=== PATIENT | female | born 1950 | race Caucasian/White ===

== ENCOUNTER 2021-01-12 21:12 | Observation (INO) | payer OTHER ==
--- NOTE | 2021-01-12 22:22 | RAD REPORT ---
EXAM DESCRIPTION: RAD - Chest Single View - 01/12/2021 10:01 pm CLINICAL HISTORY: CHEST PAIN Chest pain. COMPARISON: <Comparisons> FINDINGS: Portable technique limits examination quality. The lungs are grossly clear. The heart is normal in size. No displaced fractures.Dual lead pacer cas ce noted. IMPRESSION: No acute intrathoracic process suspected.
[2021-01-12 22:34] LABS: Basophils % 0.7 % (0-1.3); Hematocrit 33.8 % (36.0-45.0); Lymphocytes % 24.5 % (15.3-44.8); MPV 8.1 fL (7.6-11.3); RBC Red Blood Cell Count 3.37 M/uL (3.86-4.86)
[2021-01-12 22:51] LABS: ALT/SGPT 40 U/L (12-78); AST/SGOT 17 U/L (15-37); Alkaline Phosphatase 82 U/L (45-117); BUN Blood Urea Nitrogen 17 mg/dL (7-18); Bicarbonate 25 mmol/L (21-32); Bilirubin Direct 0.4 mg/dL (0-0.2); Bilirubin Total 2.5 mg/dL (0.2-1.0); Glucose Level 117 mg/dL (74-106); Magnesium 2.3 mg/dL (1.8-2.4); NT PRO-BNP 63 pg/mL (<125); Potassium 3.6 mmol/L (3.5-5.1); Protein, Total 7.1 g/dL (6.4-8.2); Sodium Level 144 mmol/L (136-145); Troponin (Emerg Dept Use Only) < 0.02 ng/mL (0.0-0.045)
[2021-01-12 22:54] LABS: Protime INR 2.24
--- NOTE | 2021-01-13 00:31 | EDPHYS ---
Physician Documentation [facility] Name: Jennifer Garcia Age: 71 yrs Sex: Female : 1950 Arrival Date: 01/12/2021 Time: 21:14 Bed 19 Private MD: ED Physician Pierre Gant HPI: 01/13 05:53 This 71 yrs old Female presents to ER via Wheelchair with complaints of tw4 Collapse Lungs. 05:53 The patient or guardian reports chest pain that is located primarily in the anterior tw4 chest wall. Onset: today. The pain does not radiate. Associated signs and symptoms: The patient has no apparent associated signs or symptoms. The chest pain is described as sharp. Duration: The patient or guardian reports multiple episodes, that are intermittent, that wax and wane. Modifying factors: The symptoms are alleviated by narcotic pain medication, the symptoms are aggravated by nothing. The patient has not experienced similar symptoms in the past. Historical: - Allergies: 01/12 21:35 Erythromycin; ll1 21:35 Codeine; ll1 - Home Meds: 01/13 04:58 cevimeline 30 mg oral cap 1 cap 2 time per day for Xerostomia Secondary to Sjogren's sf Syndrome [Active]; 05:13 losartan 50 mg oral tab 1 tab 2 times per day [Active]; amlodipine 5 mg tab 1 tab once sf daily [Active]; flecainide 100 mg oral tab 1 tab every 12 hours [Active]; Xarelto 20 mg oral tab 1 tab once daily [Active]; Crestor 20 mg oral tab 1 tab once daily [Active]; Singulair 10 mg Oral tab 1 tab once daily [Active]; - PMHx: 01/12 21:35 Hypertension; High Cholesterol; ll1 01/13 04:59 Sjogren's; sf - PSHx: 01/12 21:35 pacemaker; ll1 - Immunization history:: Flu vaccine is up to date. - Social history:: Smoking status: Patient denies any tobacco usage or history of. ROS: 01/13 05:53 Constitutional: Negative for fever, chills, and weight loss, Eyes: Negative for injury, tw4 pain, redness, and discharge, Neck: Negative for injury, pain, and swelling, Respiratory: Negative for shortness of breath, cough, wheezing, and pleuritic chest pain, Abdomen/GI: Negative for abdominal pain, nausea, vomiting, diarrhea, and constipation, Back: Negative for injury and pain, MS/Extremity: Negative for injury and deformity, Skin: Negative for injury, rash, and discoloration, Neuro: Negative for headache, weakness, numbness, tingling, and seizure. Cardiovascular: Positive for chest pain. Exam: 05:53 Constitutional: This is a well developed, well nourished patient who is awake, alert, tw4 and in no acute distress. Head/Face: Normocephalic, atraumatic. Chest/axilla: Normal chest wall appearance and motion. Nontender with no deformity. No lesions are appreciated. Cardiovascular: Regular rate and rhythm with a normal S1 and S2. No gallops, murmurs, or rubs. Normal PMI, no JVD. No pulse deficits. Respiratory: Lungs have equal breath sounds bilaterally, clear to auscultation and percussion. No rales, rhonchi or wheezes noted. No increased work of breathing, no retractions or nasal flaring. Abdomen/GI: Soft, non-tender, with normal bowel sounds. No distension or tympany. No guarding or rebound. No evidence of tenderness throughout. Back: No spinal tenderness. No costovertebral tenderness. Full range of motion. Skin: Warm, dry with normal turgor. Normal color with no rashes, no lesions, and no evidence of cellulitis. MS/ Extremity: Pulses equal, no cyanosis. Neurovascular intact. Full, normal range of motion. Neuro: Awake and alert, GCS 15, oriented to person, place, time, and situation. Cranial nerves II-XII grossly intact. Motor strength 5/5 in all extremities. Sensory grossly intact. Cerebellar exam normal. Normal gait. Vital Signs: 01/12 21:31 BP 163 / 84; Pulse 76; Resp 18; Temp 99.2; Pulse Ox 99% ; Weight 95.71 kg; Height 5 ft. ll1 5 in. (165.10 cm); Pain 8/10; 22:07 BP 147 / 75; Pulse 72; Resp 18; Pulse Ox 97% ; sf 22:30 BP 151 / 73; Pulse 67; Resp 16; Pulse Ox 95% ; sf 01/13 00:30 BP 154 / 79; Pulse 68; Resp 16; Pulse Ox 96% ; sf 03:15 BP 143 / 78; Pulse 79; Resp 16; Pulse Ox 95% ; sf 04:00 BP 143 / 84; Pulse 74; Resp 16; Pulse Ox 95% ; sf 01/12 21:31 Body Mass Index 35.11 (95.71 kg, 165.10 cm) ll1 MDM: 01/12 21:50 Patient medically screened. tw4 01/13 05:54 Differential diagnosis: mitral valve prolapse, pancreatitis, peptic ulcer disease, tw4 pericarditis, pulmonary embolus, thoracic aortic disection. Data reviewed: vital signs, nurses notes. Counseling: I had a detailed discussion with the patient and/or guardian regarding: the historical points, exam findings, and any diagnostic results supporting the discharge/admit diagnosis. 01/12 21:50 Order name: Basic Metabolic Panel tw 01/12 21:50 Order name: CBC with Diff [facility] 01/12 21:50 Order name: LFT's [facility] 01/12 21:50 Order name: Magnesium tw 01/12 21:50 Order name: NT PRO-BNP tw 01/12 21:50 Order name: PT-INR; Complete Time: 01:48 [facility] 01/12 21:50 Order name: Troponin (emerg Dept Use Only); Complete Time: 22:57 [facility] 01/12 22:59 Interpretation: Within normal limits: TROPED < 0.02. tw4 01/12 21:51 Order name: Basic Metabolic Panel; Complete Time: 22:57 [facility] 01/12 22:57 Interpretation: Normal except: CL 110; GLUC 117; GFR 57. tw4 01/12 21:51 Order name: CBC with Automated Diff; Complete Time: 22:57 [facility]TX 01/12 22:58 Interpretation: Normal except: RBC 3.37; HGB 11.7; HCT 33.8; MCV 100.2; PLT 442; RDW tw4 16.4. 01/12 21:51 Order name: Liver (Hepatic) Function; Complete Time: 22:57 EDMS 01/12 22:58 Interpretation: BILID 0.4; BILIT 2.5. tw4 01/12 21:51 Order name: Magnesium; Complete Time: 22:57 [facility]TX 01/12 22:59 Interpretation: Within normal limits: MG 2.3. tw4 01/12 21:51 Order name: NT PRO-BNP; Complete Time: 22:57 EDMS 01/12 22:59 Interpretation: Within normal limits: NT PRO-BNP 63. 01/13 00:31 Order name: COVID-19 : Document "Date of Symptom Onset" if Symptomatic. mw2 01/13 04:12 Order name: SARS-COV-2 RT PCR [facility]TX 01/12 21:50 Order name: XRAY Chest (1 view); Complete Time: 22:32 tw4 01/12 21:50 Order name: EKG; Complete Time: 21:51 tw4 01/12 21:50 Order name: Cardiac monitoring; Complete Time: 22:02 tw4 01/12 21:50 Order name: EKG - Nurse/Tech; Complete Time: 22:02 tw 01/12 21:50 Order name: IV Saline Lock; Complete Time: 22:14 tw4 01/12 21:50 Order name: Labs collected and sent; Complete Time: 22:14 [facility] 01/12 21:50 Order name: O2 Per Protocol; Complete Time: 22:02 tw 01/12 21:50 Order name: O2 Sat Monitoring; Complete Time: 22:02 4 01/12 23:00 Order name: CT Chest For PE Angio tw4 EC:54 Rate is 75 beats/min. Rhythm is regular. Left axis deviation noted. NJ interval is tw4 normal. QRS interval is normal. QT interval is normal. No Q waves. T waves are Normal. No ST changes noted. Clinical impression: NSR w/ Non-specific ST/T Changes. Interpreted by me. Reviewed by me. Administered Medications: No medications were administered Disposition: 01/13/21 00:31 Hospitalization ordered by David Littlejohn for Observation. Preliminary diagnosis is Other chest pain. - Bed requested for Telemetry/MedSurg (observation). - Status is Observation. sf - Condition is Stable. - Problem is new. - Symptoms have improved. Signatures: Dispatcher [employer] EDMS Kelton Alonso, DARBY-C POWDER COAT PAINTER-Cla1 Mervin Barajas PA PA cp Garcia, Cindy, RN RN Pierre Gant MD MD tw4 Diana Ricci RN RN ll1 Blayne Herbert RN RN sf Corrections: (The following items were deleted from the chart) 04:58 00:31 Hospitalization Ordered by David Littlejohn DO for Observation. Preliminary cg diagnosis is Other chest pain. Bed requested for Telemetry/MedSurg (observation). Status is Observation. Condition is Stable. Problem is new. Symptoms have improved. tw4 05:32 04:58 01/13/2021 00:31 Hospitalization Ordered by David Littlejohn DO for Observation. sf Preliminary diagnosis is Other chest pain. Bed requested for Telemetry/MedSurg (observation). Status is Observation. Condition is Stable. Problem is new. Symptoms have improved. cg
--- NOTE | 2021-01-13 00:31 | ER ---
Nurse's Notes [facility] Name: Jennifer Garcia Age: 71 yrs Sex: Female : 1950 Arrival Date: 01/12/2021 Time: 21:14 Bed 19 Private MD: Diagnosis: Other chest pain Presentation: 01/12 21:31 Chief complaint: Patient states: Mid CP and SOB since 1700 today. Nausea and dizzy at ll1 times. States she had a pacemaker placed 12/26. Collapsed lung R after surgery. Had chest tube. States it feels like another collapsed lung. Coronavirus screen: Client denies travel out of the [place] in the last 14 days. At this time, the client does not indicate any symptoms associated with coronavirus-19. Ebola Screen: Patient denies travel to an Ebola-affected area in the 21 days before illness onset. Initial Sepsis Screen: Does the patient meet any 2 criteria? No. Patient's initial sepsis screen is negative. Does the patient have a suspected source of infection? Yes: Other: CP. Risk Assessment: Do you want to hurt yourself or someone else? Patient reports no desire to harm self or others. Onset of symptoms was January 12, 2021. 21:31 Method Of Arrival: Wheelchair ll1 21:31 Acuity: KIERAN 2 ll1 Historical: - Allergies: 21:35 Erythromycin; ll1 21:35 Codeine; ll1 - Home Meds: 01/13 04:58 cevimeline 30 mg oral cap 1 cap 2 time per day for Xerostomia Secondary to Sjogren's sf Syndrome [Active]; 05:13 losartan 50 mg oral tab 1 tab 2 times per day [Active]; amlodipine 5 mg tab 1 tab once sf daily [Active]; flecainide 100 mg oral tab 1 tab every 12 hours [Active]; Xarelto 20 mg oral tab 1 tab once daily [Active]; Crestor 20 mg oral tab 1 tab once daily [Active]; Singulair 10 mg Oral tab 1 tab once daily [Active]; - PMHx: 01/12 21:35 Hypertension; High Cholesterol; ll1 01/13 04:59 Sjogren's; sf - PSHx: 01/12 21:35 pacemaker; ll1 - Immunization history:: Flu vaccine is up to date. - Social history:: Smoking status: Patient denies any tobacco usage or history of. Screenin:40 Abuse screen: Denies threats or abuse. Denies injuries from another. Nutritional sf screening: No deficits noted. Tuberculosis screening: No symptoms or risk factors identified. Never had TB. Possible symptoms: None Risk factors: None. Fall Risk None identified. No fall in past 12 months (0 pts). No secondary diagnosis (0 pts). IV access (20 points). Ambulatory Aid- None/Bed Rest/Nurse Assist (0 pts). Gait- Normal/Bed Rest/Wheelchair (0 pts) Mental Status- Oriented to own ability (0 pts). Total Rai Fall Scale indicates No Risk (0-24 pts). Assessment: 22:40 General: Appears in no apparent distress. comfortable, Behavior is calm, cooperative, sf appropriate for age. Pain: Complains of pain in anterior aspect of right upper chest. Neuro: No deficits noted. Level of Consciousness is awake, alert, obeys commands, Oriented to person, place, time, situation, Appropriate for age. Cardiovascular: Reports Right chest wall pain Patient's skin is warm and dry. Rhythm is atrial fibrillation. Respiratory: Reports shortness of breath Airway is patent Respiratory effort is even, unlabored, Respiratory pattern is regular, symmetrical. 01/13 00:46 Reassessment: Patient appears in no apparent distress at this time. No changes from sf previously documented assessment. Patient and/or family updated on plan of care and expected duration. Pain level reassessed. Patient is alert, oriented x 3, equal unlabored respirations, skin warm/dry/pink. 01:20 Reassessment: Called [employer] for pace-maker interrogation per request of ZOË Melara. sf Vital Signs: 01/12 21:31 BP 163 / 84; Pulse 76; Resp 18; Temp 99.2; Pulse Ox 99% ; Weight 95.71 kg; Height 5 ft. ll1 5 in. (165.10 cm); Pain 8/10; 22:07 BP 147 / 75; Pulse 72; Resp 18; Pulse Ox 97% ; sf 22:30 BP 151 / 73; Pulse 67; Resp 16; Pulse Ox 95% ; sf 01/13 00:30 BP 154 / 79; Pulse 68; Resp 16; Pulse Ox 96% ; sf 03:15 BP 143 / 78; Pulse 79; Resp 16; Pulse Ox 95% ; sf 04:00 BP 143 / 84; Pulse 74; Resp 16; Pulse Ox 95% ; sf 01/12 21:31 Body Mass Index 35.11 (95.71 kg, 165.10 cm) ll1 ED Course: 01/12 21:14 Patient arrived in ED. cl3 21:34 Triage completed. ll1 21:35 Arm band placed on. ll1 21:42 Blayne Herbert, RN is Primary Nurse. sf 21:50 Pierre Gant MD is Attending Physician. tw4 22:01 XRAY Chest (1 view) In Process Unspecified. EDMS 22:40 Patient has correct armband on for positive identification. Placed in gown. Bed in low sf position. Call light in reach. Side rails up X2. No stick/BP left arm. threat monitoring analyst on. Pulse ox on. NIBP on. Door closed. Visitors limited. Lights dimmed. Warm blanket given. Verbal reassurance given. 22:40 Inserted saline lock: 20 gauge in right antecubital area, using aseptic technique. sf 23:58 CT Chest For PE Angio In Process Unspecified. EDTX 01/13 00:30 David Littlejohn DO is Hospitalizing Provider. tw4 03:22 Basic Metabolic Panel Sent. sf 03:22 CBC with Diff Sent. sf 03:22 LFT's Sent. sf 03:22 Magnesium Sent. sf 03:22 NT PRO-BNP Sent. sf 03:52 No provider procedures requiring assistance completed. Patient admitted, IV remains in sf place. 04:14 Ambulated to restroom and back. sf Administered Medications: No medications were administered Outcome: 00:31 Decision to Hospitalize by Provider. tw4 05:21 Admitted to Tele accompanied by tech, via wheelchair, room 428, Report called to karthikeyan Elmore RN 05:22 Condition: stable sf 05:32 Patient left the ED. Signatures: Dispatcher [employer] EDTX Pierre Gant MD MD tw4 Ellis Ricci cl3 Diana Ricci RN RN ll1 Blayne Herbert, CHRIS RN
--- NOTE | 2021-01-13 02:05 | P.HP ---
Certification for Inpatient Patient admitted to: Observation With expected LOS: <2 Midnights Patient will require the following post-hospital care: None Practitioner: I am a practitioner with admitting privileges, knowledge of patient current condition, hospital course, and medical plan of care. Services: Services provided to patient in accordance with Admission requirements found in Title 42 Section 412.3 of the Code of Federal Regulations Patient History Date of Service: 01/13/21 Reason for admission: Chest pain History of Present Illness: 71-year-old female with history of breast cancer, hypertension, hyperlipidemia, sick sinus syndrome with pacemaker placement recent history of pneumothorax/pulmonary embolism presents emergency department for chest pain. Patient was at [facility] starting on December first for approximately 10 days to have pacemaker inserted due to sick sinus syndrome. Patient had pneumothorax as complication from pacemaker insertion and then had pulmonary embolism following this. Patient reports that today she was at home around 4:00 p.m. started having a sharp pain radiating to her right shoulder and back with associated palpitations, dizziness, shortness of breath. Patient felt like she had a pneumothorax again so came into the emergency department. Patient was evaluated in the ER, chest x-ray unremarkable CT PE protocol negative for pneumothorax or pulmonary embolism. Patient currently taking Xarelto for PE treatment. Patient had stress test in September that was negative has never had a heart catheterization. ED provider wishes to admit patient for chest pain rule out. When I saw the patient in the ER she was awake, alert, oriented x3, patient chest pain free at this time, was able to obtain [employer] pacemaker card, as patient said that she is having palpitations during this episode of chest pain attempts are being made to interrogate pacemaker. Patient was offered transfer to [facility] as she is having chest pain and recently had all of these procedures done but declined stating she did not want go back there as they had caused multiple complications for her. - Past Medical/Surgical History -: Hypertension -: Hyperlipidemia -: Sick sinus syndrome status post pacemaker insertion -: History of pulmonary embolism December 2020 -: Pneumothorax 2020 -: History of breast cancer with bilateral mastectomy -: Bilateral Mastectomy -: Bilateral oophorectomy -: Left ankle surgery Psychosocial/ Personal History: Patient is retired, lives with her - Family History Mother -: Heart disease - Social History Smoking Status: Never smoker Alcohol use: No CD- Drugs: No Caffeine use: Yes Place of Residence: Home Review of Systems 10-point ROS is otherwise unremarkable Cardiovascular: Chest Pain, Palpitations, Light Headedness, As per HPI Physical Examination - Physical Exam General: Alert, In no apparent distress HEENT: Atraumatic, PERRLA, Mucous membr. moist/pink, EOMI, Sclerae nonicteric Neck: Supple, 2+ carotid pulse no bruit, No LAD, Without JVD or thyroid abnormality Respiratory: Clear to auscultation bilaterally, Normal air movement Cardiovascular: Regular rate/rhythm, Normal S1 S2 Gastrointestinal: Normal bowel sounds, No tenderness Musculoskeletal: No tenderness Integumentary: No rashes Neurological: Normal speech, Normal strength at 5/5 x4 extr, Normal tone, Normal affect - Studies Laboratory Data (last 24 hrs) 01/12/21 22:05: PT 26.0 H, INR 2.24 01/12/21 22:05: WBC 8.40, Hgb 11.7 L, Hct 33.8 L, Plt Count 442 H 01/12/21 22:05: Sodium 144, Potassium 3.6, BUN 17, Creatinine 0.96, Glucose 117 H, Magnesium 2.3, Total Bilirubin 2.5 H, AST 17, ALT 40, Alkaline Phosphatase 82 Assessment and Plan - Plan Assessment Chest pain rule out ACS: Recent history of pulmonary embolism on anticoagulation therapy: Sick sinus syndrome status post pacemaker insertion: Hypertension: Hyperlipidemia: Plan Chest pain rule out ACS: Monitor on telemetry, trend troponins. Stress test in September 2020 normal, no history of heart catheterization. Patient reports palpitations during episode of chest pain, pacemaker present, will have nursing staff to get in touch with [employer] to interrogate pacemaker. Cardiology consult in place. Continue home medications. Recent history of pulmonary embolism on anticoagulation therapy: Continue Xarelto, CT PE protocol, negative. Sick sinus syndrome status post pacemaker insertion: Monitor on telemetry, cardiology consult in place. Interrogate pacemaker. Hypertension: Home medications continue Hyperlipidemia: Obtain and continue home meds Discharge Plan: Home Plan to discharge in: 24 Hours - Advance Directives Does patient have a Living Will: No Does patient have a Durable POA for Healthcare: No - Code Status/Comfort Care Code Status Assessed: Yes (Full code) Critical Care: No Time Spent Managing Pts Care (In Minutes): 55
[2021-01-13] MEDS ORDERED: ONDANSETRON 4 MG/2 ML VIAL IV PRN (06:15)
[2021-01-13] MEDS ORDERED: ACETAMINOPHEN 500 MG TAB PO PRN (06:15)
[2021-01-13] MEDS ORDERED: HYDROCODONE/APAP 10/325 TAB PO PRN (06:15)
[2021-01-13 06:51] LABS: Absolute Lymphocytes (CBC) 1.3 K/uL (0.7-4.9); Hematocrit 33.1 % (36.0-45.0); Lymphocytes % 14.9 % (15.3-44.8); MPV 8.2 fL (7.6-11.3); RBC Red Blood Cell Count 3.29 M/uL (3.86-4.86)
[2021-01-13 07:19] LABS: BUN Blood Urea Nitrogen 13 mg/dL (7-18); Bicarbonate 26 mmol/L (21-32); Glucose Level 106 mg/dL (74-106); HDL Cholesterol 45 mg/dL (40-60); LDL Cholesterol, Calculated 36 (<130); Magnesium 2.3 mg/dL (1.8-2.4); Potassium 3.6 mmol/L (3.5-5.1); Sodium Level 144 mmol/L (136-145); Troponin I < 0.02 ng/mL (0.0-0.045)
--- NOTE | 2021-01-13 07:41 | P.DS ---
Admission Date: 01/13/21 Discharge Date: 01/13/21 Primary Care Provider: PRIMITIVO Trejo Disposition: ROUTINE DISCHARGE Discharge Condition: GOOD Reason for Admission: Chest pain Consultations: Cardiology-Dr. Townsend Procedures: COVID: Negative CT scan: FINDINGS: Chest: Pulmonary arteries: Contrast bolus is adequate. No filling defects identified in the main, right, left, or lobar pulmonary arteries. Evaluation of the segmental and subsegmental pulmonary arterial branches is suboptimal due to respiratory motion artifact. Thyroid: Heterogeneous hypodense right thyroid nodule measuring 2.8 cm. Great Vessels: Great vessels have normal anatomic configuration. Thoracic Aorta: Atherosclerotic calcification of the thoracic aorta. Heart: Cardiomegaly. Coronary artery atherosclerosis. Right chest wall multilead generator. Lymph Nodes: No enlarged mediastinal lymph nodes identified. Esophagus: Small hiatal hernia. Other: Postoperative change in the left axilla. Lungs: Respiratory motion artifact. Minimal bibasilar atelectasis. No confluent airspace consolidation. Pleura: No pleural effusion or pneumothorax. Trachea/Airways: No abnormalities of the visualized trachea or airways. Bones: Mild degenerative endplate spondylosis of the spine. Upper Abdomen: Limited images of the upper abdomen demonstrate no definite a bnormalities of visualized portions of the liver and spleen. IMPRESSION: 1. No central pulmonary embolus. Suboptimal evaluation of the segmental and subsegmental pulmonary arterial branches due to respiratory motion artifact. 2. Cardiomegaly with coronary artery atherosclerosis. 3. 2.8 cm right thyroid nodule. Ultrasound follow-up recommended. Medical Problem List: Chest pain rule out ACS Recent history of pulmonary embolism now on anticoagulation therapy Sick sinus syndrome status post recent pacemaker insertion Hypertension Hyperlipidemia CT scan showing 2.8 cm right thyroid nodule Brief History of Present Illness: 71-year-old female with history of breast cancer, hypertension, hyperlipidemia, sick sinus syndrome with pacemaker placement recent history of pneumothorax/pulmonary embolism presents emergency department for chest pain. Patient was at [facility] starting on December 26 for approximately 10 days to have pacemaker inserted due to sick sinus syndrome. Patient had pneumothorax as complication from pacemaker insertion and then had pulmonary embolism following this. Patient reported having a sharp pain radiating to her right shoulder and back with associated palpitations, dizziness, shortness of breath. Patient felt like she had a pneumothorax again so came into the emergency department. Patient was evaluated in the ER, chest x-ray unremarkable CT PE protocol negative for pneumothorax or pulmonary embolism. Patient currently taking Xarelto for PE treatment. Patient had stress test in September that was negative and has never had a heart catheterization. Patient admitted for further evaluation and treatment. Hospital Course: Patient presented with chest pain. Patient was with complicated history of sick sinus syndrome with recent pacemaker placement complicated with pneumothorax and pulmonary embolism. Patient was evaluated in the emergency room. CT scan did not reveal any pneumothorax or central pulmonary embolism. Patient was to be transferred due to her recent hospitalization at [facility]. Patient preferred to stay locally. Patient admitted for further evaluation. So far cardiac enzymes unremarkable. Cardiology was consulted for further evaluation. Pacemaker interrogated. No abnormality noted. Case discussed with cardiology. No intervention needed at this time. At discharge she is without significant chest pain. At discharge she will continue with her current medications including Norvasc 5 mg daily, Cevimeline 30 mg 1 pill twice daily, flecainide 100 mg 1 pill twice daily, losartan 50 mg 1 pill twice daily, Crestor 20 mg daily, and Xarelto as directed. History of pulmonary embolism now on chronic anti coagulation therapy. At discharge she will continue with her current medication Xarelto as directed. Recommend follow up with her PCP to further monitor. Patient with sick sinus syndrome status post recent pacemaker insertion. Recommend follow up with cardiology to further monitor and address. Patient will continue with her current medications including Cevimeline 30 mg 1 pill twice daily and flecainide 100 mg 1 pill twice daily. Patient with hypertension. At discharge she will continue with her current medication-Norvasc 5 mg daily. Recommend to maintain blood pressure less than 130/80. Further adjustment can be done by her PCP. Patient with hyperlipidemia. At discharge she will continue with her current medication-Crestor [address] scan also revealed a 2.8 cm right thyroid nodule. Recommend outpatient thyroid ultrasound to further evaluate. Patient would also benefit with ENT evaluation to further address. She can have her PCP address this in detail. Vital Signs/Physical Exam: Temp Pulse Resp BP Pulse Ox 97.3 F 82 16 163/85 H 99 01/13/21 05:51 01/13/21 05:51 01/13/21 05:51 01/13/21 05:51 01/13/21 05:51 General: Alert, In no apparent distress, Oriented x3, Cooperative HEENT: Atraumatic Neck: Supple Respiratory: Clear to auscultation bilaterally, Normal air movement Cardiovascular: Normal pulses, Regular rate/rhythm Gastrointestinal: Normal bowel sounds, No tenderness, No masses, No rebound, No guarding Musculoskeletal: No erythema, No tenderness, No warmth Integumentary: No erythema, No warmth, No cyanosis Neurological: Normal speech, Normal strength at 5/5 x4 extr, Normal tone, Normal affect Laboratory Data at Discharge: WBC 8.70 K/uL (4.3-10.9) 01/13/21 06:31 Hgb 11.1 g/dL (12.0-15.0) L 01/13/21 06:31 Hct 33.1 % (36.0-45.0) L 01/13/21 06:31 Plt Count 399 K/uL (152-406) 01/13/21 06:31 PT 26.0 SECONDS (9.5-12.5) H 01/12/21 22:05 INR 2.24 01/12/21 22:05 Sodium 144 mmol/L (136-145) 01/13/21 06:31 Potassium 3.6 mmol/L (3.5-5.1) 01/13/21 06:31 BUN 13 mg/dL (7-18) 01/13/21 06:31 Creatinine 0.65 mg/dL (0.55-1.3) 01/13/21 06:31 Glucose 106 mg/dL (74-106) 01/13/21 06:31 Magnesium 2.3 mg/dL (1.8-2.4) 01/13/21 06:31 Total Bilirubin 2.5 mg/dL (0.2-1.0) H 01/12/21 22:05 AST 17 U/L (15-37) 01/12/21 22:05 ALT 40 U/L (12-78) 01/12/21 22:05 Alkaline Phosphatase 82 U/L (45-117) 01/12/21 22:05 Troponin I < 0.02 ng/mL (0.0-0.045) 01/13/21 06:31 Triglycerides 89 mg/dL (<150) 01/13/21 06:31 Cholesterol 99 mg/dL (<200) 01/13/21 06:31 HDL Cholesterol 45 mg/dL (40-60) 01/13/21 06:31 Cholesterol/HDL Ratio 2.20 01/13/21 06:31 Home Medications: Amlodipine [Norvasc*] 5 mg PO DAILY 01/13/21 Cevimeline HCl 30 mg PO BID 01/13/21 Flecainide [Tambocor*] 100 mg PO BID 01/13/21 Hydrocodone Bit/Acetaminophen [Hydrocodon-Acetaminophen 5-325] 1 each PO BID PRN #5 tablet 01/13/21 Losartan Potassium 50 mg PO BID 01/13/21 Montelukast Sodium [Singulair] 10 mg PO DAILY 01/13/21 Rivaroxaban [Xarelto] 20 mg PO DAILY 01/13/21 Rosuvastatin Calcium [Crestor] 20 mg PO DAILY 01/13/21 New Medications: Hydrocodone Bit/Acetaminophen [Hydrocodon-Acetaminophen 5-325] 1 each PO BID PRN #5 tablet PRN Reason: Pain Scale 2-4 (Mild) Physician Discharge Instructions: Patient presented with chest pain. Patient was with complicated history of sick sinus syndrome with recent pacemaker placement complicated with pneumothorax and pulmonary embolism. Patient was evaluated in the emergency room. CT scan did not reveal any pneumothorax or central pulmonary embolism. Patient was to be transferred due to her recent hospitalization at [facility]. Patient preferred to stay locally. Patient admitted for further evaluation. So far cardiac enzymes unremarkable. Cardiology was consulted for further evaluation. Pacemaker interrogated. No abnormality noted. Case discussed with cardiology. No intervention needed at this time. At discharge she is without significant chest pain. At discharge she will continue with her current medications including Norvasc 5 mg daily, Cevimeline 30 mg 1 pill twice daily, flecainide 100 mg 1 pill twice daily, losartan 50 mg 1 pill twice daily, Crestor 20 mg daily, and Xarelto as directed. History of pulmonary embolism now on chronic anti coagulation therapy. At discharge she will continue with her current medication Xarelto as directed. Recommend follow up with her PCP to further monitor. Patient with sick sinus syndrome status post recent pacemaker insertion. Recommend follow up with cardiology to further monitor and address. Patient will continue with her current medications including Cevimeline 30 mg 1 pill twice daily and flecainide 100 mg 1 pill twice daily. Patient with hypertension. At discharge she will continue with her current medication-Norvasc 5 mg daily. Recommend to maintain blood pressure less than 130/80. Further adjustment can be done by her PCP. Patient with hyperlipidemia. At discharge she will continue with her current medication-Crestor [address] scan also revealed a 2.8 cm right thyroid nodule. Recommend outpatient thyroid ultrasound to further evaluate. Patient would also benefit with ENT evaluation to further address. She can have her PCP address this in detail. Diet: AHA Activity: Ad gary Followup: [email or web address] [Primary Care Provider] - Time spent managing pt's care (in minutes): 55
[2021-01-13 07:55] VITALS: BMI 35.1
[2021-01-13 08:18] LABS: Urine Appearance CLEAR; Urine Bilirubin NEGATIVE (NEG); Urine Blood NEGATIVE (NEG); Urine Color YELLOW; Urine Glucose NEGATIVE (NEG); Urine Protein NEGATIVE (NEG); Urine Specific Gravity 1.025 (1.005-1.030); Urine pH 6.5 (5.0-7.0)
[2021-01-13 08:30] LABS: Urine Microscopic Reflex NO UMIC
[2021-01-13] MEDS ORDERED: hydroCHLOROthiazide 12.5 MG CAP PO SCH (09:00)
[2021-01-13] MEDS ORDERED: AMLODIPINE 5 MG TAB PO SCH (09:00)
[2021-01-13] MEDS ORDERED: FLECAINIDE 100 MG TAB PO SCH (09:00)
[2021-01-13] MEDS ORDERED: LOSARTAN POTASSIUM 50 MG TABLET PO SCH (09:00)
--- NOTE | 2021-01-13 11:23 | RAD REPORT ---
EXAM DESCRIPTION: Chest For Pe Angio CLINICAL HISTORY: CHEST PAIN COMPARISON: None Available. TECHNIQUE: CTA of the chest obtained following the uncomplicated intravenous administration of iodin ated contrast. 3-D/MIP reformatted images of the chest available for evaluation. The most inferior po rtion of the lung bases are cut off on these images. FINDINGS: Chest: Pulmonary arteries: Contrast bolus is adequate. No filling defects identified in the main, right, lef t, or lobar pulmonary arteries. Evaluation of the segmental and subsegmental pulmonary arterial branc hes is suboptimal due to respiratory motion artifact. Thyroid: Heterogeneous hypodense right thyroid nodule measuring 2.8 cm. Great Vessels: Great vessels have normal anatomic configuration. Thoracic Aorta: Atherosclerotic calcification of the thoracic aorta. Heart: Cardiomegaly. Coronary artery atherosclerosis. Right chest wall multilead generator. Lymph Nodes: No enlarged mediastinal lymph nodes identified. Esophagus: Small hiatal hernia. Other: Postoperative change in the left axilla. Lungs: Respiratory motion artifact. Minimal bibasilar atelectasis. No confluent airspace consolidatio n. Pleura: No pleural effusion or pneumothorax. Trachea/Airways: No abnormalities of the visualized trachea or airways. Bones: Mild degenerative endplate spondylosis of the spine. Upper Abdomen: Limited images of the upper abdomen demonstrate no definite abnormalities of visualize d portions of the liver and spleen. IMPRESSION: 1. No central pulmonary embolus. Suboptimal evaluation of the segmental and subsegmental pulmonary arterial branches due to respiratory motion artifact. 2. Cardiomegaly with coronary artery atherosclerosis. 3. 2.8 cm right thyroid nodule. Ultrasound follow-up recommended. This exam was performed according to our departmental dose-optimization program, which includes autom ated exposure control, adjustment of the mA and/or kV according to patient size and/or use of iterati ve reconstruction technique. Electronically signed by: Nicholas Knight 01/13/2021 12:23 AM BELL TIER Due to temporary technical issues with the PACS/Fluency reporting system, reports are being signed by the in house radiologists without review as a courtesy to insure prompt reporting. The interpreting radiologist is fully responsible for the content of the report.
[2021-01-13 13:31] VITALS: O2SAT 95
[2021-01-13 13:56] VITALS: BP 142/56; TEMP 97
[2021-01-13] MEDS ORDERED: RIVAROXABAN 10 MG TABLET PO SCH (17:00)
--- NOTE | 2021-01-16 18:03 | CON ---
Date of Consultation: 01/13/2021 Reason For Consultation: Chest pain. History Of Present Illness: A 71-year-old female who apparently had a recent pacemaker done due to s ick sinus syndrome at [facility], then ended up having a large pneumothorax that required chest tube, comes in with chest pain on the right side of the chest, close to the back. No shortness of breath. Sharp in nature. Short-lived and not related to exertion. At the time my evaluation, patient was c hest pain free. Past Medical History: Hypertension, dyslipidemia, sick sinus syndrome, history of pulmonary embolism , breast cancer. Medications: Refer consultation sheet for detailed list. Past Surgical History: Mastectomy, bilateral oophorectomy, left ankle surgery. Allergies: AZITHROMYCIN AND CODEINE. Family History: No premature coronary artery disease, cancer. Social History: She does not smoke or drink. Does not use any drugs. Review of Systems: All systems reviewed and they were negative except for what mentioned in the HPI. Physical Examination: Vital Signs: Temperature is 97.0, pulse 75, breathing at 18, blood pressure 142/57, saturating 94% o n room air. General: Pleasant elderly female, in no apparent distress. Head and Neck: Pupils are equal, reactive to light. Intact eye movements. No JVD. No cervical lym phadenopathy. Neck: Supple. Thyroid is not enlarged. Lungs: Clear to auscultation bilaterally. No rhonchi, rales, or crackles. No accessory muscle use. Heart: Regular rate and rhythm. No extra sounds. Abdomen: Soft, nontender. Bowel sounds positive. No organomegaly. No rigidity or rebound. Extremities: No edema, clubbing, cyanosis. Intact pulses. Skin: No rash. Neurologic: Alert, awake, oriented x3. No acute focal deficits appreciated. Investigations: Troponin x3 are negative. Creatinine 0.65, hemoglobin 11.1. CTA of the chest, no p ulmonary embolus. Thyroid nodule is present. No pneumothorax is seen. Assessment And Recommendations: 1.Chest pain, atypical. Could be related to recent chest tube placement. CTA ruled out pulmonary e mbolus and pneumothorax. Given the troponins are negative and patient's symptoms are atypical, she c an be released and she will follow up with her political science faculty member for further workup if deemed necessary. 2.History of deep vein thrombosis and pulmonary embolus. Currently, she is on anticoagulation, ther apeutic dose, doing very well. She was instructed not to stop her blood thinners at all even if all she appears without consulting with her physician. 3. Thank you for the consult. YOANDY Voice ID: [id number] Report ID: [id number]
== END 2021-01-13 15:33 | disposition home or self-care (01) ==
LOC: ER 21:12 → ERHOLD 01-13 01:57 → 4TH 01-13 05:22
PROVIDERS: ADMIT Family Medicine; ATTEND Family Medicine
DX: R07.89 Other chest pain (principal); I49.5 Sick sinus syndrome; I10 Essential (primary) hypertension; E78.5 Hyperlipidemia, unspecified; E04.1 Nontoxic single thyroid nodule; M35.00 Sjogren syndrome, unspecified; Z86.711 Personal history of pulmonary embolism; Z79.01 Long term (current) use of anticoagulants; Z95.0 Presence of cardiac pacemaker; Z85.3 Personal history of malignant neoplasm of breast; Z90.10 Acquired absence of unspecified breast and nipple; Z90.722 Acquired absence of ovaries, bilateral; Z88.6 Allergy status to analgesic agent; Z88.3 Allergy status to other anti-infective agents
CPT/HCPCS: 93280; 85025 ×2; 80048 ×2; 36415; 83735 ×2; 85610; 80061; 80076; 84443; 81003; 84484 ×3; 84439; 83880; 71275; 71045; 99285; U0003; Q9967; G0378 ×2